=== PATIENT | female | born 1950 | race Caucasian/White ===

== ENCOUNTER → 2018-03-26 08:41 | Outpatient (CLI) | payer OTHER, SELFPAY ==
--- NOTE | 2018-03-26 | DI.MG.S_ITS ---
BILATERAL DIGITAL SCREENING MAMMOGRAM 3D/2D WITH CAD: 03/26/2018 CLINICAL: Routine screening. Comparison is made to exams dated: 12/20/2016 mammogram, 12/05/2015 mammogram, and 11/24/2015 mammogram - [facility]. The tissue of both breasts is heterogeneously dense. This may lower the sensitivity of mammography. Current study was also evaluated with a Computer Aided Detection (CAD) system. No significant masses, calcifications, or other findings are seen in either breast. There has been no significant interval change. IMPRESSION: NEGATIVE There is no mammographic evidence of malignancy. A 1 year screening mammogram is recommended. This exam was interpreted at Station ID: [id number]. NOTE: For mammograms, a report in lay terms will be sent to the patient. Approximately 15% of breast malignancies will not be visualized mammographically. In the management of a palpable breast mass, a negative mammogram must not discourage biopsy of a clinically suspicious lesion. Electronically Signed By: Bryant addison/pj:03/28/2018 01:55:43 letter sent: Normal Exam ACR BI-RADS Category 1: Negative 3341F
== END ==
PROVIDERS: Visit Provider Nurse Practitioner Family
DX: Z12.31 Encounter for screening mammogram for malignant neoplasm of breast (principal)
CPT/HCPCS: 77063; 77067

== ENCOUNTER 2018-05-21 12:44 | Day surgery (SDC) | payer OTHER, SELFPAY ==
--- NOTE | 2018-05-19 09:25 | PM.PREOP ---
Pre-operative Note Interval Note Pre-op Check: Yes History & Physical Reviewed by Physician Changes: No
--- NOTE | 2018-05-19 09:26 | P.OP_ITS ---
Operative Date/Time/Diagnoses Date of procedure: 05/21/18 Time of procedure: 14:00 Procedure & Clinicians Procedure: Date of service: May 21, 2018 Preoperative diagnoses: 1. Bilateral upper lid dermatochalasis Postoperative diagnoses: 1. Bilateral upper lid dermatochalasis Procedure: Bilateral upper blepharoplasty Surgeon: Bridgett Alonso MD Complications: [] Specimen: None Blood loss: Less than 3 mL Anesthesia: Local infiltration with monitored standby. Anesthesiologist: Mariella Lester M.D. Indications: Bilateral upper lids obstructing superior vision. Preoperative external photographs taken and loss of vision to within 2 mm of marginal light reflex. Functional surgery. Procedure: In the preoperative holding area the amount skin and subcutaneous tissue to be removed was marked with indelible ink. The contours were carefully checked for symmetry and planned procedure discussed with the patient. The patient was taken to the operating room. IV sedation was given. Proparacaine drops were placed in both eyes for comfort. Local infiltration of anesthetic 2.5 cc into each upper lid, consisting of 1% xylocaine with epinephrine, normal saline and 1 cc hyluronidase was placed. This was then supplemented with full strength 2% xylocaine with epinephrine, 0.5% bupivacaine , and 1 cc hyalurondase. The face was prepped in an open manner. Attention was placed to the right upper lid. Using the previous mireles a number 15. Bard-Donell blade was used to incise a skin muscle flap. The flap was lifted and removed. Cautery was applied as needed. Contouring of the muscle belly was also performed. Exploration of the nasal and preoperneurotic fat pads were performed removal and contouring with hemostat and scissors as well as cautery were performed. The lid was then closed with running and interrupted 6 0 Vicryl sutures. Same procedure was repeated for the left upper lid. The Betadine was removed. Maxitrol ointment was placed to suture line. She returned to recovery room in stable condition. Instructions for postoperative cold packs were reviewed. Bridgett Alonso MD.
--- NOTE | 2018-05-21 13:33 | PM.OP.1 ---
Operative Date/Time/Diagnoses Date of procedure: 05/21/18 Procedure & Clinicians Procedure: Bilateral lower lid ectropion repair by horizontal strip procedure. Indications: Bilateral lower lid ectropion with exposure and tearing and punctal closure. Surgeon: Bridgett Alonso Click Yes if Unassisted: Yes Anesthesia Type: MAC +/-, Sedation and Local Operative Notes Findings: Bilateral lower lid laxity. Stenotic puncta. 3 snip procedure and punctal dilation bilaterally. Closure Type: primary Specimen(s): none sent Estimated Blood Loss (mL): 1 Procedure in detail: Patient is a 68-year-old female who presents with bilateral upper lid dermatochalasis and lower lid ectropion this procedure is done at the same time as her upper lid blepharoplasty for functional reasons. This surgery is also for functional causes. She is given IV sedation local infiltration with 1% xylocaine mixed with normal saline and 1 cc of hyaluronic days 2 cc is placed in each lateral canthus and lower lid. This was supplemented with 2% xylocaine with epinephrine mixed half and half with 0.5% Marcaine with 1 cc of hyaluronic days. Additional 2 cc was given. No supplemental anesthetic was needed during the procedure itself. She was maintained on a propofol drip. Attention was 1st to the right lateral canthus after patient was prepped and draped. A 1 cm left lateral canthotomy was made. There was lysis of the inferior canthal tendon. A tarsal strip was formed with less than 1 mm of tissue removed and the superior and lower lid lateral margin was incised with a fresh edge. The anterior lamella was removed there was conjunctivalchalasis this and a small amount of cautery was done to the inferior canthus after drainage with a 30 gauge needle. A 4.0 Mersilene suture was placed through the inferior tarsal plate and then a double-armed fashion through the periosteum and secured with multiple knots. The lateral canthus was then closed with interrupted and running 6 0 Vicryl sutures. There was minimal bleeding. Attention was placed to the inferior punctum. It was dilated with a punctal probe. a 3 snip procedure was performed and it was probed to the medial common canaliculus. This same procedure was repeated on the left lower lid with the exception of no need to treat inferior conjunctivalchalasis. there is also minimal bleeding to the left lower lid and no additional anesthetic was given. The Betadine was removed and Maxitrol ointment was placed and she returned to the recovery room with ice packs. Plan for aftercare: Handout for postop instructions was given with instructions for cool compresses and Tylenol if needed. She will be followed up in the office.
[2018-05-21 13:35] VITALS: BP 135/79; PULSE 64; RESP 16; TEMP 36.6; O2SAT 99; BMI 24.6
[2018-05-21] MEDS: LACTATED RINGERS 1,000 ML 42 ML IV (14:13)
[2018-05-21] MEDS: PROPARACAINE 0.5% OPHTH SOL 2 DROPS EYE-BOTH (15:32)
[2018-05-21] MEDS: LIDOCAINE 1% W/EPI 3 ML, SODIUM CHLORIDE 0.9% 2 ML, HYALURONIDASE 150 UNIT INJ (15:34)
[2018-05-21] MEDS: LIDOCAINE 2% W/EPI 3 ML, BUPIVACAINE 0.5% (PF) 2 ML, HYALURONIDASE 150 UNIT INJ (15:42)
[2018-05-21] MEDS: NEOMYCIN/POLY/DEX OPHTH OINT 1 APPLIC EYE-BOTH (15:52)
[2018-05-21 16:43] VITALS: BP 116/76; PULSE 70; RESP 16; TEMP 36.5; O2SAT 97
== END 2018-05-21 17:25 | disposition home or self-care (01) ==
PROVIDERS: PCP Family Medicine; Visit Provider Ophthalmology
PROC: (CPT 15823; principal; 2018-05-21 13:45)
PROC: (CPT 15823; 2018-05-21 13:45)
DX: H02.831 Dermatochalasis of right upper eyelid (principal); H02.834 Dermatochalasis of left upper eyelid; I10 Essential (primary) hypertension
CPT/HCPCS: 15823; J2250; J2704; J3010; J3470

== ENCOUNTER 2019-05-18 10:54 | Day surgery (SDC) | payer OTHER, SELFPAY ==
[2019-05-18 11:44] VITALS: BP 156/91; PULSE 88; RESP 16; TEMP 36.8; O2SAT 97; BMI 25.0
[2019-05-18] MEDS: SODIUM CHLORIDE 0.9% 1,000 ML 200 ML IV (12:03)
--- NOTE | 2019-05-18 13:01 | PM.HP.1 ---
History of Present Illness History of Present Illness Date Patient Seen: 05/18/19 Time Patient Seen: 13:01 Chief complaint: [id number] SCREENING COLONOSCOPY Narrative: 69-year-old white female patient asymptomatic here for a screening colonoscopy. She has had 2 prior colonoscopies and thinks she had some polyps removed does not know much about them. Currently she has no melena no hematochezia Patient History Medical History Hip replacement planned (Resolved) Surgical History Status post colonoscopy Family & Social History Family History Brother Hypertension Social History: household members none Tobacco & Substance use: Smoking Status Never smoker alcohol intake current Meds Home Medications and Allergies Home Medications Medication Instructions Recorded Confirmed Type CA PANTOTHENATE/FOLIC ACID/VIT 1 tab PO QDAY #0 01/25/11 05/18/19 History (MULTIVITAMIN) cholecalciferol (vitamin D3) 1,000 unit PO QDAY #0 tab 03/26/16 05/18/19 History [Vitamin D3] aspirin 81 mg PO BID #60 tab 10/10/16 05/18/19 Rx lisinopril 10 mg PO QDAY #90 tab 03/19/17 05/18/19 Rx Allergies Allergy/AdvReac Type Severity Reaction Status Date / Time No Known Drug Allergies Allergy Verified 12/10/18 09:41 Review of Systems Review of Systems ROS Unobtainable: All systems reviewed & are unremarkable except as noted in HPI and below Exam Vital Signs (past 8 hours): - 05/18/19 11:44 Temperature 98.3 F Pulse Rate 88 Respiratory Rate 16 Blood Pressure 156/91 H Pulse Oximetry 97 Oxygen Delivery Method Room Air Narrative Exam Narrative: Patient is alert and oriented with no pain Lungs are clear with no rales or wheezes Heart regular rhythm no murmur Abdomen soft no organomegaly no tenderness Rectal be done at colonoscopy Assessment & Plan Assessment & Plan narrative: Patient here for screening colonoscopy is asymptomatic all questions were answered.
--- NOTE | 2019-05-18 13:29 | PM.OP.ENDO ---
Operative Date/Time/Diagnoses Date of procedure: 05/18/19 Time of procedure: 13:29 Pre-op diagnosis: Screening colonoscopy Post-op diagnosis: same Procedure & Clinicians Study performed: Total colonoscopy to the cecum Same procedure as scheduled: Yes Surgeon: Jamal Miranda Procedure Notes SCOAP/Timeout: Done Procedure in detail: The patient was properly identified during surgical pause the flexible fiberoptic colonoscope inserted transanally to the cecum there are no tumors no polyps no ulcers no diverticulosis patient has a normal colonoscopy a total of 5 mg of Versed and 200 micro g of fentanyl were utilized for patient comfort throughout procedure which was very well tolerated Scope withdrawal time: 10 Sedation minutes: 25 Specimen(s): none sent Impression: Normal colon Post-procedure Recommendations: Colonscopy in 10 years Disposition: PACU
[2019-05-18 13:30] VITALS: BP 130/76; PULSE 81; RESP 14; TEMP 36.2; O2SAT 100
[2019-05-18] MEDS: MIDAZOLAM 5 MG/5 ML VIAL IV (13:31)
[2019-05-18] MEDS: fentaNYL 250 MCG/5 ML INJ IV (13:31)
[2019-05-18 13:35] VITALS: BP 127/85; PULSE 88; RESP 12; O2SAT 100
[2019-05-18 13:40] VITALS: BP 156/86; PULSE 83; RESP 14; O2SAT 100
[2019-05-18 13:48] VITALS: BP 145/93; PULSE 84; RESP 16; TEMP 36.4; O2SAT 100
== END 2019-05-18 14:03 | disposition home or self-care (01) ==
PROVIDERS: PCP Family Medicine; Visit Provider Surgery
PROC: 0DJD8ZZ Inspection of Lower Intestinal Tract, Via Natural or Artificial Opening Endoscopic (ICD-10-PCS; CPT 45378; principal; 2019-05-18 13:00)
DX: Z12.11 Encounter for screening for malignant neoplasm of colon (principal); Z86.010 Personal history of colon polyps
CPT/HCPCS: G0105; 99152; J2250; J3010

== ENCOUNTER → 2020-05-16 07:55 | Outpatient (CLI) | payer MEDICARE, SELFPAY ==
--- NOTE | 2020-05-16 | DI.MG.S_ITS ---
BILATERAL DIGITAL SCREENING MAMMOGRAM 3D/2D WITH CAD: 05/16/2020 CLINICAL: Routine screening. Comparison is made to exams dated: 03/26/2018 mammogram and 12/20/2016 mammogram - [facility]. There are scattered fibroglandular elements in both breasts. Current study was also evaluated with a Computer Aided Detection (CAD) system. No significant masses, calcifications, or other findings are seen in either breast. There has been no significant interval change. IMPRESSION: NEGATIVE There is no mammographic evidence of malignancy. A 1 year screening mammogram is recommended. This exam was interpreted at Station ID: [id number]. NOTE: For mammograms, a report in lay terms will be sent to the patient. Approximately 15% of breast malignancies will not be visualized mammographically. In the management of a palpable breast mass, a negative mammogram must not discourage biopsy of a clinically suspicious lesion. Electronically Signed By: Tiffanie martinez/pj:05/16/2020 13:41:11 letter sent: Normal Exam ACR BI-RADS Category 1: Negative 3341F
== END ==
PROVIDERS: PCP Family Medicine; Referring Provider Family Medicine; Visit Provider Family Medicine
DX: Z12.31 Encounter for screening mammogram for malignant neoplasm of breast (principal)
CPT/HCPCS: 77063; 77067

== ENCOUNTER → 2020-11-16 12:50 | Outpatient (CLI) | payer MEDICARE, SELFPAY | PROVIDERS: PCP Family Medicine; Referring Provider Nurse Practitioner Family; Visit Provider Nurse Practitioner Family | DX: M85.832 Other specified disorders of bone density and structure, left forearm (principal); Z78.0 Asymptomatic menopausal state; M06.9 Rheumatoid arthritis, unspecified; Z87.891 Personal history of nicotine dependence | CPT/HCPCS: 77080 ==

== ENCOUNTER → 2021-06-02 07:37 | Outpatient (CLI) | payer MEDICARE, SELFPAY ==
--- NOTE | 2021-06-02 | DI.MG.S_ITS ---
BILATERAL DIGITAL SCREENING MAMMOGRAM 3D/2D WITH CAD: 06/02/2021 CLINICAL: Routine screening. Comparison is made to exams dated: 05/16/2020 mammogram, 03/26/2018 mammogram, and 12/20/2016 mammogram - [facility]. There are scattered fibroglandular elements in both breasts. Current study was also evaluated with a Computer Aided Detection (CAD) system. No significant masses, calcifications, or other findings are seen in either breast. There has been no significant interval change. IMPRESSION: NEGATIVE There is no mammographic evidence of malignancy. A 1 year screening mammogram is recommended. This exam was interpreted at Station ID: [id number]. NOTE: For mammograms, a report in lay terms will be sent to the patient. Approximately 15% of breast malignancies will not be visualized mammographically. In the management of a palpable breast mass, a negative mammogram must not discourage biopsy of a clinically suspicious lesion. Electronically Signed By: Francois garcia/pj:06/02/2021 09:59:35 letter sent: Normal Exam ACR BI-RADS Category 1: Negative 3341F
== END ==
PROVIDERS: PCP Nurse Practitioner Family; Referring Provider Nurse Practitioner Family; Visit Provider Nurse Practitioner Family
DX: Z12.31 Encounter for screening mammogram for malignant neoplasm of breast (principal)
CPT/HCPCS: 77063; 77067

== ENCOUNTER 2022-01-17 10:37 | Emergency (ER) | payer MEDICARE, SELFPAY ==
--- NOTE | 2022-01-17 10:55 | DI.RAD.S_ITS ---
PROCEDURE: XR HIP W PEL IF DONE LT 2V INDICATIONS: fall 2 weeks ago TECHNIQUE: AP pelvis with lateral view(s) of the left hip(s). COMPARISON: [facility], [place], [id number] W PEL IF PERFORMED, 10/08/2016, 14:14. [facility], CR, XR PELVIS W LATERAL HIP LT, 12/06/2016, 10:21. FINDINGS: Bones: No fractures or dislocations. Pelvic ring appears intact. No suspicious bony lesions. Bilateral hip arthroplasties are present. Hardware appears intact without evidence of hardware fracture or periprosthetic loosening. Degenerative changes are noted the pubic symphysis, unchanged. Soft tissues: The visualized bowel gas pattern is normal. No suspicious soft tissue calcifications. IMPRESSION: No visualized acute fracture or dislocation. However, if clinical concern and/or pain persist, short interval imaging followup in 7-10 days is recommended, as occult injury cannot be definitively excluded. Dictated by: Marcela Almonte M.D. on 01/17/2022 at 11:41 Approved by: Marcela Almonte M.D. on 01/17/2022 at 11:42
[2022-01-17 10:57] VITALS: BP 169/109; PULSE 86; RESP 20; TEMP 36.2; O2SAT 98
--- NOTE | 2022-01-17 11:00 | DI.RAD.S_ITS ---
PROCEDURE: XR CERVICAL SPINE 2V OR 3V INDICATIONS: Fall/injury TECHNIQUE: 3 view(s) of the cervical spine were acquired. COMPARISON: None. FINDINGS: Bones: No fractures or dislocations to the C7-T1 level. The lateral masses of C1 appear intact on the odontoid view. No suspicious bony lesions. Multilevel uncovertebral hypertrophy are present. Multilevel [id number] degenerative disc space narrowing is present. Soft tissues: No prevertebral soft tissue swelling. IMPRESSION: Multilevel degenerative changes. No visualized acute fracture or dislocation. However, if clinical concern and/or pain persist, short interval imaging followup in 7-10 days is recommended, as occult injury cannot be definitively excluded. Dictated by: Marcela Almonte M.D. on 01/17/2022 at 11:42 Approved by: Marcela Almonte M.D. on 01/17/2022 at 11:43
--- NOTE | 2022-01-17 11:01 | ED_ITS ---
HPI - Extremity Injury (Lower) General Chief Complaint: Extremity Injury, Lower Stated Complaint: Fall-left hip pain- artificial hip Time Seen by Provider: 01/17/22 10:55 History of Present Illness HPI Narrative: Patient here for complaints of left hip pain and bruising with right-sided neck pain. Patient had left hip surgery 3 years ago here at this hospital Dr. Zelaya. Has been doing well. Patient is not on blood thinners. Patient states she was in her garden. Caring a round up container. She tripped and was holding onto the container landing on her left hip and still holding the container, her head and neck were arching to the right.. No loss of consciousness. Has been ambulatory and walking since then. Hurts more when she is gets up from a seated position. Has healing ecchymosis dependent inferiorly from the left hip. No gross deformity. No shortening or rotation of the left leg. Related Data Home Medications Medication Instructions Recorded Confirmed CA PANTOTHENATE/FOLIC ACID/VIT 1 tab PO QDAY ##0 01/25/11 05/18/19 (MULTIVITAMIN) cholecalciferol (vitamin D3) 25 1,000 unit PO QDAY #0 tabs 03/26/16 05/18/19 mcg (1,000 unit) tablet (Vitamin D3) Previous Rx's Medication Instructions Recorded aspirin 81 mg tablet,delayed 81 mg PO BID #60 tabs 10/10/16 release lisinopril 10 mg tablet 10 mg PO QDAY #90 tabs 03/19/17 Allergies Allergy/AdvReac Type Severity Reaction Status Date / Time No Known Drug Allergies Allergy Verified 12/10/18 09:41 Review of Systems Review of Systems Narrative: GENERAL: Denies chills, fatigue, malaise, fever, sweats. HEENT: Denies sinus pain, ear pain, sore throat RESPIRATORY: Denies dyspnea, cough CARDIOVASCULAR: Denies chest pain, palpitations GASTROINTESTINAL: Denies nausea, vomiting, abdominal pain : Denies dysuria, frequency, hematuria MUSCULOSKELETAL: Positive for muscle or bony pain SKIN: Denies rash, skin lesions NEUROLOGIC: Denies weakness, numbness ROS Unobtainable: All systems reviewed & are unremarkable except as noted in HPI and below Patient History Medical History (Updated 01/17/22 @ 14:07 by Toño Nguyen MD) Hip replacement planned Surgical History Status post colonoscopy Family History Brother Hypertension Social History household members: none Smoking Status: Never smoker alcohol intake: current substance use type: does not use Smoking Status: Never smoker Exam Narrative Exam Narrative: GENERAL: in no distress, not toxic not dyspneic, shoes and socks removed. Pants are removed. HEAD: Normocephalic. EYES: Pupils equal round No scleral icterus. ENT: Mucous membranes moist. NECK: Trachea midline. No midline tenderness or step-off of the cervical spine. There is reproducible superior right paracervical muscular tenderness and spasm. CARDIOVASCULAR: Regular rate and rhythm without murmurs RESPIRATORY: Clear to auscultation. Breath sounds equal bilaterally. No wheezes, rales, or rhonchi. GASTROINTESTINAL: Abdomen soft, non-tender EXTREMITIES: No gross deformities. No shortening or rotation of the legs. There is healing ecchymosis, dependent ecchymosis inferiorly to the left hip. There is point tenderness to the left hip. Patient able to flex and extend both hips and knees actively to 90? and fully extend. Light touch intact of feet and toes. NEURO: AOx4. SKIN: Warm and dry PSYCH: Not anxious, is cooperative Initial Vital Signs Initial Vital Signs: Vital Signs Temperature 97.2 F L 01/17/22 10:57 Pulse Rate 86 01/17/22 10:57 Respiratory Rate 20 01/17/22 10:57 Blood Pressure 169/109 H 01/17/22 10:57 Pulse Oximetry 98 01/17/22 10:57 Oxygen Delivery Method 01/17/22 10:57 Course Course Course Narrative: No new issues during course of stay Orders Ordered: ED Orders 01/17/22 10:55 XR hip w pel if done LT 2V Stat 01/17/22 11:00 XR cervical spine 2V or 3V Stat 01/17/22 12:00 CT pelvis wo con Stat Reevaluation(s) Reevaluation #1: Pain controlled at time of discharge. Reviewed results with patient. No blood work indicated this time. Patient hemodynamically stable. No dyspnea dizziness or fatigue. Patient not on blood thinners. Patient does have family doctor to follow up with. Return precautions reviewed with her. Time: 14:09 Vital Signs Vital signs: Vital Signs - 8 hr 01/17/22 10:57 01/17/22 11:38 01/17/22 12:00 Temperature 97.2 F L Pulse Rate 86 85 73 Respiratory Rate 20 Blood Pressure 169/109 H Pulse Oximetry 98 98 96 Oxygen Delivery Method Room Air 01/17/22 12:30 Temperature Pulse Rate 75 Respiratory Rate Blood Pressure Pulse Oximetry 97 Oxygen Delivery Method MDM - Extremity Injury (Lower) Differential Diagnosis Differential diagnosis: Likely fracture of hip and other (Hip contusion/pelvis fracture/cervical strain/fracture) Imaging Data X-ray cervical spine: Radiologist's Impression: [address] [address] XRay Report Signed Patient: Leila Rodriguez MR#: [id number] : 1950 Acct:[id number] Age/Sex: 71 / F Date of Service: 01/17/22 Loc: ED Accession Number: [id number] ?? Procedure: XR cervical spine 2V or 3V Ordering Provider: Toño Nguyen MD PROCEDURE:? XR CERVICAL SPINE 2V OR 3V ? INDICATIONS:? Fall/injury ? TECHNIQUE:? 3 view(s) of the cervical spine were acquired.? ? COMPARISON:? None. ? FINDINGS:? ? Bones:? No fractures or dislocations to the C7-T1 level.? The lateral masses of C1 appear intact on the odontoid view.? No suspicious bony lesions.? Multilevel uncovertebral hypertrophy are present.? Multilevel axsx-lr-fptyljtd degenerative disc space narrowing is present. ? Soft tissues:? No prevertebral soft tissue swelling.? ? ? IMPRESSION:? Multilevel degenerative changes. No visualized acute fracture or dislocation. However, if clinical concern and/or pain persist, short interval imaging followup in 7-10 days is recommended, as occult injury cannot be definitively excluded. ? ? Dictated by: Marcela Almonte M.D. on 01/17/2022 at 11:42 ? ? Approved by: Marcela Almonte M.D. on 01/17/2022 at 11:43 ? Extremity x-ray #1: Radiologist's Impression: [address] [address] XRay Report Signed Patient: Leila oRdriguez MR#: [id number] : 1950 Acct:[id number] Age/Sex: 71 / F Date of Service: 01/17/22 Loc: ED Accession Number: [id number] ?? Procedure: XR hip w pel if done LT 2V Ordering Provider: Toño Nguyen MD PROCEDURE:? XR HIP W PEL IF DONE LT 2V ? INDICATIONS:? fall 2 weeks ago ? TECHNIQUE:? AP pelvis with lateral view(s) of the left hip(s).? ? COMPARISON:? [facility], CR, [id number] W PEL IF PERFORMED, 10/08/2016, 14:14.? [facility], CR, XR PELVIS W LATERAL HIP LT, 12/06/2016, 10:21. ? FINDINGS:? ? Bones:? No fractures or dislocations.? Pelvic ring appears intact.? No suspicious bony lesions.? Bilateral hip arthroplasties are present.? Hardware appears intact wit hout evidence of hardware fracture or periprosthetic loosening.? Degenerative changes are noted the pubic symphysis, unchanged. ? Soft tissues:? The visualized bowel gas pattern is normal.? No suspicious soft tissue calcifications.? ? ? IMPRESSION:? No visualized acute fracture or dislocation. However, if clinical concern and/or pain persist, short interval imaging followup in 7-10 days is recomme nded, as occult injury cannot be definitively excluded. ? Dictated by: Marcela Almonte M.D. on 01/17/2022 at 11:41 ? ? Approved by: Marcela Almonte M.D. on 01/17/2022 at 11:42 ? Extremity x-ray #2: Radiologist's Impression: [address] [address] [address] Scan Report Signed Patient: Leila Rodriguez MR#: [id number] : 1950 Acct:[id number] Age/Sex: 71 / F Date of Service: 01/17/22 Loc: ED Accession Number: [id number] ?? Procedure: CT pelvis wo con Ordering Provider: Toño Nguyen MD PROCEDURE:? CT PEL WO CON ? INDICATIONS:? Fall/pain/left hip ? TECHNIQUE:? Noncontrast 3 mm axial sections acquired through the bony pelvis, with coronal and sagittal reformatting.? ? COMPARISON:? [facility], CR, XR PELVIS W LATERAL HIP LT, 12/06/2016, 10:21.? [facility], CR, XR HIP W PEL IF DONE LT 2V, 01/17/2022, 11:15. ? FINDINGS:? Image quality:? Excellent.? ? Bones:? Bilateral total hip arthroplasties.? No fracture or dislocation.? No CT findings to suggest prosthesis loosening.? There is mild degenerative disease at L5-S1.? Facet arthropathy at L5-S1, severe on the right and moderate on the left. ? Soft tissues:? There is soft tissue contusion in the left thigh.? A 2.4 x 3.6 x 8.4 cm subcutaneous fluid collection in the lateral aspect of the left thigh is consistent with hematoma.? Moderate atherosclerotic calcification. ? ? IMPRESSION:? ? 1. Bilateral total hip arthroplasties.? No fracture or dislocation. 2. A 2.4 x 3.6 x 8.4 cm subcutaneous fluid collection in the lateral aspect of the left thigh consistent with hematoma. 3. 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 Dictated by: Rosy Gonzalez M.D. on 01/17/2022 at 13:36 ? ? Approved by: Rosy Gonzalez M.D. on 01/17/2022 at 13:49 ? MDM Narrative Medical decision making narrative: Appropriate for discharge home. Patient hemodynamically stable. Not on blood thinners. Return precautions reviewed with patient. Does have a family doctor to follow up with may need physical therapy for the hematoma on the hip area. Patient desires discharge home. Discharge Plan Departure Patient Disposition: Home Clinical Impression: Hematoma of left hip, Cervical muscle strain Instructions: DI for Whiplash, DI for Contusion, DI for Hematoma (Bruise) Activity Restrictions/Additional Instructions: See family doctor within a week for re-evaluation. May need physical therapy to help with the bruising in your hip area. Return if worse if any questions or concerns. Prescriptions: No Action CA PANTOTHENATE/FOLIC ACID/VIT (MULTIVITAMIN) 1 tab PO QDAY Qty: 0 cholecalciferol (vitamin D3) [Vitamin D3] 1,000 UNIT tablet 1,000 unit PO QDAY Qty: 0 aspirin 81 MG tablet,delayed release (DR/EC) 81 mg PO BID Qty: 60 0RF lisinopril 10 MG tablet 10 mg PO QDAY Qty: 90 0RF Referrals: Vidya Pinzon ARNP [Primary Care Provider] - Visit Report Forms: Patient Portal/API
[2022-01-17 11:38] VITALS: PULSE 85; O2SAT 98
[2022-01-17 12:00] VITALS: PULSE 73; O2SAT 96
--- NOTE | 2022-01-17 12:00 | DI.CT.S_ITS ---
PROCEDURE: CT PEL WO CON INDICATIONS: Fall/pain/left hip TECHNIQUE: Noncontrast 3 mm axial sections acquired through the bony pelvis, with coronal and sagittal reformatting. COMPARISON: [facility], CR, XR PELVIS W LATERAL HIP LT, 12/06/2016, 10:21. [facility], CR, XR HIP W PEL IF DONE LT 2V, 01/17/2022, 11:15. FINDINGS: Image quality: Excellent. Bones: Bilateral total hip arthroplasties. No fracture or dislocation. No CT findings to suggest prosthesis loosening. There is mild degenerative disease at L5-S1. Facet arthropathy at L5-S1, severe on the right and moderate on the left. Soft tissues: There is soft tissue contusion in the left thigh. A 2.4 x 3.6 x 8.4 cm subcutaneous fluid collection in the lateral aspect of the left thigh is consistent with hematoma. Moderate atherosclerotic calcification. IMPRESSION: 1. Bilateral total hip arthroplasties. No fracture or dislocation. 2. A 2.4 x 3.6 x 8.4 cm subcutaneous fluid collection in the lateral aspect of the left thigh consistent with hematoma. 3. 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 Dictated by: Rosy Gonzalez M.D. on 01/17/2022 at 13:36 Approved by: Rosy Gonzalez M.D. on 01/17/2022 at 13:49
[2022-01-17 12:30] VITALS: PULSE 75; O2SAT 97
--- NOTE | 2022-01-17 13:14 | PC.NURSE ---
patient was able to walk to the far bathroom (next to triage) from room 4. Pt C/O continued pain with movement. I stood by patient while she walked on her own.
== END 2022-01-17 14:17 | disposition home or self-care (01) ==
PROVIDERS: Emergency Provider Emergency Medicine; PCP Nurse Practitioner Family
DX: S70.02XA Contusion of left hip, initial encounter (principal); S16.1XXA Strain of muscle, fascia and tendon at neck level, initial encounter; W19.XXXA Unspecified fall, initial encounter
CPT/HCPCS: 72040; 72192; 73502; 99281; 99284

== ENCOUNTER → 2022-08-03 11:08 | Outpatient (CLI) | payer MEDICARE, SELFPAY ==
--- NOTE | 2022-08-03 | DI.CT.S_ITS ---
PROCEDURE: CT CHEST WO CON INDICATIONS: F/U PULM NODULE TECHNIQUE: Noncontrast 5 mm thick sections acquired from the pulmonary apices to the posterior costophrenic angles. 1 mm lung window, 5 mm thick coronal and sagittal and 7 mm axial MIP reformats were then acquired. For radiation dose reduction, the following was used: automated exposure control, adjustment of mA and/or kV according to patient size. COMPARISON: [facility], , CT THORAX W/O CONTRAST, 06/02/2021, 9:34. FINDINGS: Image quality: Excellent. Lungs and pleura: Mild centrilobular emphysema. A patchy area of ground-glass opacity in the right apex medially measuring approximately 2 cm is unchanged compared to the prior CT. No new pulmonary nodules. No acute air space opacities. No pleural effusions or pneumothorax. Central and peripheral airways are patent and normal in caliber. Mediastinum: Heart size is normal. The coronary arteries have atherosclerotic calcifications. No pericardial effusion. No mediastinal adenopathy by size criteria. Thoracic aorta and central pulmonary arteries are normal in size. Esophagus is normal in caliber. No hiatal hernia. Bones and chest wall: No suspicious bony lesions. Kyphosis of the thoracic spine. No vertebral body compression fractures. No axillary or supraclavicular adenopathy by size criteria. Thyroid gland is normal . Abdomen: Visualized upper abdominal solid organs and bowel loops appear normal in the absence of contrast. IMPRESSION: Stable appearance of the right apical ground-glass opacity since 12/10/2018. LUNG-RADS 2. Continue annual screening with low-dose chest CT. Dictated by: Matthew Garg M.D. on 08/03/2022 at 12:17 Approved by: Matthew Garg M.D. on 08/03/2022 at 12:22
== END ==
PROVIDERS: PCP Family Medicine; Referring Provider Family Medicine; Visit Provider Nurse Practitioner Family
DX: R91.1 Solitary pulmonary nodule; I72.8 Aneurysm of other specified arteries; Z87.891 Personal history of nicotine dependence
CPT/HCPCS: 71250

== ENCOUNTER → 2023-06-24 08:12 | Outpatient (CLI) | payer MEDICARE, SELFPAY ==
--- NOTE | 2023-06-24 | DI.CT.S_ITS ---
PROCEDURE: CT CHEST WO CON INDICATIONS: CHEST TIGHTNESS AND PRESSURE TECHNIQUE: Noncontrast 5 mm thick sections acquired from the pulmonary apices to the posterior costophrenic angles. 1 mm lung window, 5 mm thick coronal and sagittal and 7 mm axial MIP reformats were then acquired. For radiation dose reduction, the following was used: automated exposure control, adjustment of mA and/or kV according to patient size. COMPARISON: [facility], , CT LUNG CANCER SCREENING, 12/10/2018, 11:01. [facility], CT THORAX W/O CONTRAST, 06/02/2021, 9:34. FINDINGS: Image quality: Diagnostic. Lungs and pleura: There is mild centrilobular emphysema with an apical predominance. A 2.2 x 1.2 cm ground-glass radiopacity at the right apex is unchanged from the study dated December 10, 2018. Mediastinum: Heart size is normal. No pericardial effusion. No mediastinal adenopathy by size criteria. Thoracic aorta and central pulmonary arteries are normal in size. Scattered atheromatous calcifications are present within the aortic arch. Esophagus is normal in caliber. No hiatal hernia. Bones and chest wall: No suspicious bony lesions. No vertebral body compression fractures. No axillary or supraclavicular adenopathy by size criteria. The thyroid is unremarkable. Upper Abdomen: Low-density cystic lesions are present within the visualized liver and are incompletely characterized on this noncontrast study. Visualized upper abdominal solid organs and bowel loops appear otherwise normal in the absence of contrast. IMPRESSION: 1. Mild centrilobular emphysema. 2. Stable right apical ground-glass radiopacities. 3. No new suspicious pulmonary nodules. 4. Aortic atherosclerosis. Fleischner Society criteria for SOLID lung nodule followup. Nodule size (mm)Low-risk patientHigh-risk patient<6 (single or multiple)No routine followup.Optional CT at 12 months. 6-8 (single or multiple)CT at 6-12 months, then optional CT at 18-24 mo.CT at 6-12 months, then CT at 18-24 months. >8 (single)CT at 3 months, PET-CT, or biopsy. Same as for low-risk pts. >8 (multiple)CT at 3-6 months, then optional CT at 18-24 mo.CT at 3-6 months, then CT at 18-24 months. Fleischner Society criteria for SUB-SOLID lung nodule followup. Solitary pure ground-glass nodules<6 mm (ground glass or part solid)No followup needed. 6 mm or larger (ground glass)CT at 6-12 months to confirm persistence, then CT every 2 years until 5 years.6 mm or larger (part solid)CT at 3-6 months to confirm persistence, then annual CT until 5 years if unchanged and solid component remains <6 mm. Multiple sub-solid nodules<6 mmCT at 3-6 months, then CT consider at 2 & 4 years for high risk patients. [address] at 3-6 months. Subsequent management based on most suspicious lesions. Recommendations do not apply to lung cancer screening, patients with immunosuppression, or patients with known primary cancer. Dictated by: Gail Jessica M.D. on 06/24/2023 at 10:38 Approved by: Gail Jessica M.D. on 06/24/2023 at 10:45
== END ==
PROVIDERS: PCP Family Medicine; Referring Provider Family Medicine; Visit Provider Family Medicine
DX: R07.89 Other chest pain (principal); I10 Essential (primary) hypertension; Z87.891 Personal history of nicotine dependence; R07.2 Precordial pain; R61 Generalized hyperhidrosis; J43.2 Centrilobular emphysema; I70.0 Atherosclerosis of aorta
CPT/HCPCS: 71250

== ENCOUNTER → 2023-07-25 14:01 | Outpatient (CLI) | payer MEDICARE, SELFPAY | PROVIDERS: PCP Family Medicine; Referring Provider Internal Medicine Critical Care Medicine; Visit Provider Internal Medicine Critical Care Medicine | DX: R06.02 Shortness of breath (principal); Z87.891 Personal history of nicotine dependence; J98.8 Other specified respiratory disorders | CPT/HCPCS: 94060; 94726; 94729 ==

== ENCOUNTER → 2024-05-05 07:57 | Outpatient (CLI) | payer MEDICARE, SELFPAY ==
--- NOTE | 2024-05-05 07:58 | DI.ECHO.S_ITS ---
[place] [facility]---------+ [facility] : : [address] : : [place] : : [id number] : : Phone: [phone] Echocardiogram Report + + :Name: SUMIT PABON Study Date: 05/05/2024 Height: 63 in : :[facility] ReadingLocation: Weight: 135 lb : : Gender: Female BSA: 1.6 m2 : :: 1950 Age: 74 yrs BP: 127/89 mmHg: :Reason For Study: ATYPICAL CHEST PAIN : :Ordering Physician: JOHN, : :FELIPE Performed By: Melissa Tavares : :Referring: FELIPE LOPEZ : + + Interpretation Summary The left ventricle appears normal in size and systolic function with an estimated ejection fraction of 60 to 65% without any focal wall motion abnormality. Diastolic function is challenging to assess because of contradictory data but suggest a possible diastolic relaxation abnormality with mildly elevated E/E' ratios which could indicate mildly increased filling pressures although normal left atrial volumes do not support this. The right ventricle grossly appears normal in size and systolic function. Right ventricular systolic pressure cannot be estimated but CVP is likely around 3 mmHg. Both atria are normal in size. There is no significant valvular abnormality. The patient was in sinus rhythm with frequent PACs but without any complex or sustained arrhythmia. Procedure: A two-dimensional transthoracic echocardiogram with color flow and Doppler was performed. The study quality was technically adequate. There is no prior echocardiogram noted for this patient. The patient was in sinus rhythm with heart rates between 60-80 bpm during the exam. The patient had frequent PACs during the exam. Left Ventricle: The left ventricle appears normal in size, wall thickness, and systolic function without any focal wall motion abnormalities. The estimated left ventricular end diastolic volume is 44 ml. The ejection fraction is estimated to be 60-65%. Diastolic parameters suggest a relaxation abnormality of the left ventricle, consistent with probable normal filling pressures. Right Ventricle: The right ventricle grossly appears normal in size with probable normal systolic function. Atria: Both atria are normal in size. The interatrial septum grossly appears intact with no obvious evidence for an atrial septal defect. There is no Doppler evidence for an interatrial shunt. Mitral Valve: The mitral valve is normal in structure and function. There is trace mitral regurgitation. Aortic Valve: The aortic valve is trileaflet. The aortic valve is slightly calcified. The aortic valve opens well. There is no aortic valve stenosis. No aortic regurgitation is present. Tricuspid Valve: The tricuspid valve is normal in structure and function. There is trace tricuspid regurgitation. Pulmonary artery pressures cannot be estimated because of the lack of a measurable TR jet velocity but the IVC suggests a CVP of around 3 mmHg. Pulmonic Valve: The pulmonic valve leaflets are thin and pliable; valve motion is normal. There is no pulmonic valvular regurgitation. There is no significant valvular heart disease. Great Vessels: The aortic root is normal size. The dimensions of the ascending aorta are normal. The IVC is of normal diameter and collapses greater than 50% with a sniff. This suggests a low right atrial pressure of 3 mm Hg. Pericardium/ Pleura There is no pericardial effusion. There is no pleural effusion. MMode/2D Measurements & Calculations LVIDd: 4.0 cm LVOT diam: 2.0 cm LVIDs: 2.4 cm Ao root diam: 2.7 cm FS: 39.3 % asc Aorta Diam: 3.2 cm EPSS: 1.0 cm Ao Arch Diam (Prox Trans): 2.8 cm IVSd: 0.94 cm LVPWd: 0.94 cm LV awad. diameter/BSA (cm/m^2): 2.4 LV sys. diameter/BSA (cm/m^2): 1.5 LA A2 area: 10.9 cm2 RA long axis: 4.6 cm LA A4 area: 13.7 cm2 RA area: 13.3 cm2 LA length (vol): 4.5 cm RA vol: 33.0 ml LA vol: 28.2 ml RA : 20.2 ml/m2 LA vol index: 17.2 ml/m2 IVC diam: 1.2 cm RVD1 (basal): 3.5 cm RVD2 (mid): 2.7 cm TAPSE: 1.7 cm Doppler Measurements & Calculations Ao V2 max: 118.9 cm/sec LVOT Max Rj: 71.9 cm/sec Ao V2 mean: 77.7 cm/sec LV V1 max P.1 mmHg Ao max P.7 mmHg LV V1 VTI: 14.3 cm Ao mean P.8 mmHg RAMA(I,D): 2.2 cm2 Ao V2 VTI: 20.5 cm RAMA(V,D): 1.9 cm2 sev ratio: 0.70 RAMA indexed to BSA (cm^2/m^2): 1.3 MV E max rj: 69.4 cm/sec PA V2 max: 75.9 cm/sec MV A max rj: 79.7 cm/sec PA V2 mean: 53.5 cm/sec MV E/A: 0.87 PA mean P.2 mmHg Med Peak E' Rj: 4.1 cm/sec PA pr(Accel): 41.3 mmHg E/E' med: 17.1 Lat Peak E' Rj: 4.2 cm/sec E/E' lat: 16.4 E/e' average: 16.7 MV dec time: 0.22 sec SV(LVOT): 45.3 ml Reading Physician:05:01 PM
--- NOTE | 2024-05-06 07:48 | DI.NM.S_ITS ---
DATE OF SERVICE: 05/05/2024 PROCEDURE: Exercise stress test. INDICATIONS: Chest pain, shortness of breath, hypertension, hyperlipidemia. CARDIAC STRESS: The patient underwent exercise stress test under the supervision of an attending staff using standard Naren protocol. The patient walked for about 4 minutes and 33 seconds on Naren protocol. Achieved maximum heart rate of 157, which was 108% of target heart rate. Resting blood pressure 120/90 and peak blood pressure 152/96 mmHg. Baseline rhythm was sinus with occasional PACs. During stress, no convincing ischemic changes seen. The patient has frequent PVCs as well as PACs and a short run of atrial couplets. There was no obvious AFib or sustained ventricular tachycardia seen. No chest pain. The patient had moderate shortness of breath. Achieved 7 METS of workload. KRISTINE positive 15%. CONCLUSION: Exercise stress test is negative for inducible ischemia. Diminished exercise tolerance. KRISTINE positive 15%. Normal hemodynamic response. Rare PACs at rest; however, frequent isolated PVCs and PACs during exercise and early recovery with rare atrial couplets. No obvious AFib or ventricular tachycardia. No chest pain. Had moderate shortness of breath. Correlate clinically. Leila Rodriguez - JESSICA/yg/ASHOK doc#: [id number]/job#: [id number] dd: 05/05/2024 16:42:00 dt: 05/05/2024 19:36:00 DICTATING /COPIES TO: Racquel Clemente MD COPIES MNE: MEMO;
== END ==
LOC: RAD 07:57
PROVIDERS: PCP Family Medicine; Referring Provider Specialist; Visit Provider Specialist
DX: R07.89 Other chest pain (principal); R06.09 Other forms of dyspnea; I10 Essential (primary) hypertension; E78.5 Hyperlipidemia, unspecified; R06.02 Shortness of breath
CPT/HCPCS: 93017; 93306

== ENCOUNTER → 2024-05-05 08:03 | Outpatient (CLI) | payer MEDICARE, SELFPAY ==
--- NOTE | 2024-05-05 08:04 | DI.MG.S_ITS ---
BILATERAL DIGITAL SCREENING MAMMOGRAM 3D/2D WITH CAD: 05/05/2024 CLINICAL: Routine screening. Comparison is made to exams dated: 06/02/2021 mammogram, 05/16/2020 mammogram, and 03/26/2018 mammogram - [facility]. There are scattered areas of fibroglandular density (category b / 25%-50% glandular tissue). Current study was also evaluated with a Computer Aided Detection (CAD) system. No significant masses, calcifications, or other findings are seen in either breast. There has been no significant interval change. IMPRESSION: NEGATIVE There is no mammographic evidence of malignancy. A 1 year screening mammogram is recommended. Based on the Tyrer Cuzick model (a risk assessment model) the patient's lifetime risk is 2.4% and her 10 year risk is 2.4%. According to the ACR, ACS, and NCCN guidelines, an annual breast MRI exam along with mammogram is recommended if the patient's lifetime risk is 20% or greater. This exam was interpreted at Station ID: [id number]. NOTE: For mammograms, a report in lay terms will be sent to the patient. Approximately 15% of breast malignancies will not be visualized mammographically. In the management of a palpable breast mass, a negative mammogram must not discourage biopsy of a clinically suspicious lesion. Electronically Signed By: Paula Rosenbaum M.D., Ph.D. [email or web address]:05/06/2024 01:02:37 letter sent: Normal Exam ACR BI-RADS Category 1: Negative
== END ==
PROVIDERS: PCP Family Medicine; Referring Provider Family Medicine; Visit Provider Family Medicine
DX: Z12.31 Encounter for screening mammogram for malignant neoplasm of breast (principal)
CPT/HCPCS: 77063; 77067

== ENCOUNTER → 2024-06-01 10:43 | Outpatient (CLI) | payer MEDICARE, SELFPAY ==
[2024-06-01 11:54] LABS: Hematocrit 43.3 % (36-46); Hemoglobin 14.4 g/dL (12.0-16.0); Mean Corpuscular HGB Conc 33.2 % (30-36); Mean Corpuscular Hemoglobin 33.4 PG (26-34); Mean Corpuscular Volume 100.7 fL (80-100); Platelet Count 239 X10^3/uL (150-400); Red Cell Distribution Width 13.2 % (11.6-14.8); White Blood Cell Count 8.8 X10^3/uL (4.5-11.0)
[2024-06-01 12:26] LABS: Alanine Aminotransferase 23 IU/L (<35); Albumin 4.2 g/dL (3.5-5.0); Albumin Globulin Ratio 1.6 (1.0-2.8); Alkaline Phosphatase 69 U/L (38-126); Aspartate Aminotransferase 29 IU/L (14-36); BUN Creatinine Ratio 16.2 (6-22); Bilirubin Total 0.7 mg/dL (0.2-1.3); Blood Urea Nitrogen 12 mg/dL (7-17); Calcium 8.8 mg/dL (8.4-10.2); Carbon Dioxide 26 mmol/L (22-32); Chloride 105 mmol/L (98-107); Estimated Glomerular Filt Rate > 60 mL/min (>60); Globulin 2.7 g/dL (1.7-4.1); Glucose 85 mg/dL (80-110); HEMOLYSIS 20 (0-50); Magnesium 2.1 mg/dL (1.6-2.3); Potassium 3.9 mmol/L (3.4-5.1); Sodium 138 mmol/L (137-145); Total Protein 6.9 g/dL (6.3-8.2)
[2024-06-01 12:55] LABS: Thyroid Stimulating Hormone 1.47 uIU/mL (0.47-4.68)
== END ==
PROVIDERS: PCP Family Medicine; Referring Provider Specialist; Visit Provider Specialist
DX: E78.2 Mixed hyperlipidemia (principal); I10 Essential (primary) hypertension; R06.09 Other forms of dyspnea
CPT/HCPCS: 36415; 80053; 83735; 84443; 85027

== ENCOUNTER → 2024-09-01 10:02 | Outpatient (CLI) | payer OTHER, SELFPAY ==
--- NOTE | 2024-09-01 10:04 | DI.CT.S_ITS ---
PROCEDURE: CT LUNG LOW DOSE SCREENING INDICATIONS: FORMER SMOKER TECHNIQUE: Noncontrast 2.0-2.5 mm thick sections acquired from the pulmonary apices to the posterior costophrenic angles. 7 mm thick axial MIP, and 5 mm coronal and sagittal reformats were then acquired. For radiation dose reduction, the following was used: automated exposure control, adjustment of mA and/or kV according to patient size. COMPARISON: CT chest 06/24/2023, 12/10/2018. FINDINGS: Image quality: Diagnostic. Lower Neck: No enlarged lymph nodes. Thyroid: No thyroid nodules which require sonographic follow up, per consensus guidelines. Axillae: No enlarged lymph nodes. Chest Wall: Unremarkable. Bones: Unremarkable. Lungs and Pleura: No pneumothorax or pleural effusions. No consolidation. Stable right apical 2.2 cm ground-glass opacity, not significantly changed since 12/10/2018. No new or suspicious pulmonary nodule. Mild centrilobular emphysema. Mild bibasilar atelectasis. Heart: Heart size is normal. No pericardial effusion. Thoracic Vessels: The aorta and pulmonary arteries demonstrate normal size. Mediastinum and Margaret: No enlarged lymph nodes. Esophagus: No wall thickening. No hiatal hernia. Upper Abdomen: Hepatic low attenuating structures, probable cysts. Visualized upper abdomen solid organs and bowel loops appear normal. IMPRESSION: Stable right apical ground-glass since 2019. No new or enlarging pulmonary nodules. LUNG-RADS 2; continued annual screening, if eligible. Clinically Significant Non-pulmonary Findings: None. Approved by: Paula Rosenbaum M.D.,Ph.D. on 09/03/2024 at 3:12
== END ==
LOC: CT 10:03
PROVIDERS: PCP Family Medicine; Referring Provider Family Medicine; Visit Provider Family Medicine
DX: Z87.891 Personal history of nicotine dependence (principal); Z12.2 Encounter for screening for malignant neoplasm of respiratory organs; J43.2 Centrilobular emphysema
CPT/HCPCS: 71271

== ENCOUNTER → 2024-10-09 07:50 | Outpatient (CLI) | payer OTHER, SELFPAY ==
[2024-10-09 10:01] LABS: Alanine Aminotransferase 40 IU/L (<35); Albumin 4.2 g/dL (3.5-5.0); Albumin Globulin Ratio 1.8 (1.0-2.8); Alkaline Phosphatase 101 U/L (38-126); Aspartate Aminotransferase 32 IU/L (14-36); BUN Creatinine Ratio 22.4 (6-22); Bilirubin Total 0.6 mg/dL (0.2-1.3); Blood Urea Nitrogen 17 mg/dL (7-17); Calcium 9.5 mg/dL (8.4-10.2); Carbon Dioxide 23 mmol/L (22-32); Chloride 106 mmol/L (98-107); Estimated Glomerular Filt Rate > 60 mL/min (>60); Globulin 2.4 g/dL (1.7-4.1); Glucose 99 mg/dL (80-110); HEMOLYSIS < 15 (0-50); Potassium 4.7 mmol/L (3.4-5.1); Sodium 139 mmol/L (137-145); Total Protein 6.6 g/dL (6.3-8.2)
[2024-10-12 10:08] LABS: Cholesterol, Total 136 mg/dL (100-199); HDL-Cholesterol 69 mg/dL (>39); HDL-Particle (Total) 41.4 umol/L (>=30.5); LDL Particle 823 nmol/L (<1000); LDL Size 20.8 nm (>20.5); LDL-Cholsterol 53 mg/dL (0-99); LP-IR Score 51 (<=45); Small LDL- Particle 449 nmol/L (<=527); Triglycerides 69 mg/dL (0-149)
== END ==
LOC: LAB 07:52
PROVIDERS: PCP Family Medicine; Referring Provider Specialist; Visit Provider Specialist
DX: I10 Essential (primary) hypertension (principal); R06.09 Other forms of dyspnea; E78.2 Mixed hyperlipidemia
CPT/HCPCS: 36415; 80053; 80061; 83704; 83735

== ENCOUNTER → 2025-06-30 09:55 | Outpatient (CLI) | payer OTHER, SELFPAY ==
--- NOTE | 2025-06-30 09:56 | DI.CT.S_ITS ---
PROCEDURE: CT LUNG LOW DOSE SCREENING INDICATIONS: Former smoker; lung cancer screening TECHNIQUE: Noncontrast 2.0-2.5 mm thick sections acquired from the pulmonary apices to the posterior costophrenic angles. 7 mm thick axial MIP, and 5 mm coronal and sagittal reformats were then acquired. For radiation dose reduction, the following was used: automated exposure control, adjustment of mA and/or kV according to patient size. COMPARISON: [facility], CT, CT LUNG LOW DOSE SCREENING, 09/01/2024, 10:10. FINDINGS: Image quality: Diagnostic. Lower Neck: No enlarged lymph nodes. Thyroid: No thyroid nodules which require sonographic follow up, per consensus guidelines. Axillae: No enlarged lymph nodes. Chest Wall: Unremarkable. Bones: Unremarkable. Lungs and Pleura: No pneumothorax or pleural effusions. No consolidations. Medial right upper lobe ground-glass focus is unchanged. Heart: Heart size is normal. Trace pericardial effusion. Thoracic Vessels: The aorta and pulmonary arteries demonstrate normal size. Mediastinum and Margaret: No enlarged lymph nodes. Esophagus: No wall thickening. No hiatal hernia. Upper Abdomen: Unchanged low-attenuation hepatic foci. IMPRESSION: Unchanged right upper lobe ground-glass opacity. This is suspected to be related to remote infection/inflammation. LUNG-RADS 2; continued annual screening, if eligible. Clinically Significant Non-pulmonary Findings: None. Dictated by: Marcela Almonte M.D. on 06/30/2025 at 12:59 Approved by: Marcela Almonte M.D. on 06/30/2025 at 13:02
== END ==
LOC: CT 09:56
PROVIDERS: PCP Family Medicine; Referring Provider Physician Assistant; Visit Provider Physician Assistant
DX: Z87.891 Personal history of nicotine dependence (principal)
CPT/HCPCS: 71271